=== PATIENT | male | born 1950 | race Caucasian/White ===

== ENCOUNTER 2016-07-03 16:58 | Emergency (ER) | payer OTHER ==
[~2016-07-03] VITALS: Ht 185.4 cm; Wt 78.6 kg
[~2016-07-03 16:58] MED LIST: ALPR0.5T8 PO; AMLO5TAB2 PO; APIX5TAB PO; ATOR80TA PO; GABA-502 PO; IBUP200C PO; INSLIS SUBQ; INSU100V7 SUBQ; ISOS60TA2 PO; LISI-571 PO; NITR0.4T6 SL; PARO20TA5 PO; RISP2TAB3 PO; RIVA3CAP5 PO; TOPI50TA88 PO; TRAZ-118 PO
[2016-07-03 16:59] VITALS: BP 113/74; PULSE 103; RESP 16; O2SAT 98
[2016-07-03] MEDS ORDERED: CLOP75TA3 PO (17:04)
--- NOTE | 2016-07-03 17:28 | ED.REPORT ---
HPI-Extremity Problem Lower Date of Service Jul 03, 2016 ED Provider: Nursing Notes Stated Complaint: BLOTS CLOTS, POSS STROKE Chief Complaint: Extremity Trauma Allergies: Coded Allergies: No Known Allergies (Verified , 07/03/16) Scheduled Amlodipine (Amlodipine) 5 Mg Tablet 5 MG PO DAILY Atorvastatin (Lipitor) 80 Mg Tablet 80 MG PO HS Clopidogrel Bisulfate (Plavix) 75 Mg Tablet 75 MG PO DAILY Gabapentin (Gabapentin) 300 Mg Capsule 300 MG PO BID Insulin Glargine (Lantus U100 Insulin Vial) 100 Unit/Ml Vial 20 UNIT SUBQ HS Insulin Human Lispro (HumaLOG U100 Insulin Vial) 100 Unit/Ml Unit UNITS SUBQ ACHS use per sliding scale Isosorbide MN ER (Isosorbide MN ER) 60 Mg Tab.er.24h 60 MG PO QAM Lisinopril (Lisinopril) 5 Mg Tablet 5 MG PO HS Paroxetine (Paroxetine) 20 Mg Tablet 20 MG PO DAILY Risperidone (Risperidone) 2 Mg Tablet 2 MG PO BID Rivastigmine (Rivastigmine) 3 Mg Capsule 3 MG PO BIDWM Trazodone (Trazodone) 100 Mg Tablet 200 MG PO HS Scheduled PRN Alprazolam (Alprazolam) 0.5 Mg Tablet 0.5 MG PO HS PRN PRN For Insomnia Ibuprofen (Ibuprofen) 200 Mg Capsule 800 MG PO TID PRN PRN For Pain Nitroglycerin SL (Nitroglycerin SL) 0.4 Mg Tab.subl 0.4 MG SL Q5MIN PRN PRN For Chest Pain General Time Seen by MD: 17:27 Past Medical History Past Medical History multiple CVAs, with recent right thalamic lacunar stroke extensive vascular disease pulmonary embolism 2x Hemorrhagic strokes while on asa and plavix Dementia Depression anxiety diabetes mellitus coronary artery disease with cardiac stenting 14x hypertension Reports: Transient ischemic attack Past Surgical History 14 cardiac stents (Last one 2013) CABG Smoking History Current Every Day Smoker Social History Alcohol Use: "Social" Drug Use: Denies drug use Other Social History: Good social support, , Local resident Ambulatory Status Independent Physical Exam Initial Vital Signs Vital Signs (First) Date Time Temp Pulse Resp B/P Pulse Ox O2 Delivery O2 Flow Rate FiO2 07/03/16 16:59 36.3 103 16 113/74 98 Room Air Interpretation & Diagnostics Lab Results Interpretation Test 07/03/16 17:35 Discharge & Departure Referrals: Melly Alvarez PA-C (PCP) Pancho Lacy MD Jul 03, 2016 17:28
--- NOTE | 2016-07-03 18:06 | ED.REPORT ---
HPI-Extremity Problem Upper Date of Service Jul 03, 2016 ED Provider: Stacy Loo MD A 66 year old male with a history of dementia, type II diabetes, CAD s/p multiple stents and bypass surgery, recent TIA, pulmonary embolism, hypertension , hyperlipidemia and known CVD with multiple previous CVA's presents to the ED complaining of left arm and left leg swelling that began 5 days ago. reports similar symptoms during his previous PE. Patient was recently seen in the ED on 04/02 for a TIA and was admitted on 03/31 for acute right thalamic lacunar infarct and CTA of the neck also revealed a PE. He was discharged on in good condition with instructions to take Eliquis and discontinue the Aspirin and Plavix. denies any new onset redness, fever, change in mental status, melena, hematochezia, abdominal pain or pain in his extremities. Nursing Notes Stated Complaint: BLOTS CLOTS, POSS STROKE Chief Complaint: Extremity Trauma Nursing Notes Reviewed: Yes Allergies: Coded Allergies: No Known Allergies (Verified , 07/03/16) Scheduled Amlodipine (Amlodipine) 5 Mg Tablet 5 MG PO DAILY Atorvastatin (Lipitor) 80 Mg Tablet 80 MG PO HS Clopidogrel Bisulfate (Plavix) 75 Mg Tablet 75 MG PO DAILY Gabapentin (Gabapentin) 300 Mg Capsule 300 MG PO BID Insulin Glargine (Lantus U100 Insulin Vial) 100 Unit/Ml Vial 20 UNIT SUBQ HS Insulin Human Lispro (HumaLOG U100 Insulin Vial) 100 Unit/Ml Unit UNITS SUBQ ACHS use per sliding scale Isosorbide MN ER (Isosorbide MN ER) 60 Mg Tab.er.24h 60 MG PO QAM Lisinopril (Lisinopril) 5 Mg Tablet 5 MG PO HS Paroxetine (Paroxetine) 20 Mg Tablet 20 MG PO DAILY Risperidone (Risperidone) 2 Mg Tablet 2 MG PO BID Rivastigmine (Rivastigmine) 3 Mg Capsule 3 MG PO BIDWM Trazodone (Trazodone) 100 Mg Tablet 200 MG PO HS Scheduled PRN Alprazolam (Alprazolam) 0.5 Mg Tablet 0.5 MG PO HS PRN PRN For Insomnia Ibuprofen (Ibuprofen) 200 Mg Capsule 800 MG PO TID PRN PRN For Pain Nitroglycerin SL (Nitroglycerin SL) 0.4 Mg Tab.subl 0.4 MG SL Q5MIN PRN PRN For Chest Pain General Time Seen by MD: 18:04 Chief Complaint Other (Left Leg Swelling ) Hx Obtained From: Patient, Spouse Arrived By: Walk-in Onset Occurred: 5 days ago Symptom Duration: Since onset Location: No: Arm left Associated with: Reports: Joint swelling, Swelling, Denies: Abdominal pain, Fever Pertinent Negative: Pt denies other symptoms Recent Healthcare: Recent doctor visit, Recent hospitalization Past Medical History Past Medical History TIA - 03/2016 multiple CVAs, with recent right thalamic lacunar stroke extensive vascular disease pulmonary embolism 2x Hemorrhagic strokes while on asa and plavix Dementia Depression anxiety diabetes mellitus coronary artery disease with cardiac stenting 14x hypertension Reports: Transient ischemic attack Past Surgical History 14 cardiac stents (Last one 2013) CABG Smoking History Current Every Day Smoker Social History Alcohol Use: "Social" Drug Use: Denies drug use Other Social History: Good social support, , Local resident Ambulatory Status Independent Review of Systems Constitutional: Denies: Chills, Fever Musculoskeletal: Reports: Extremity swelling (Left arm and left leg swelling ) , Denies: Extremity pain Neurologic: Denies: Change LOC Complete sys rev & neg: except as marked. Respiratory: Denies: Shortness of breath GI: Denies: Abdominal pain, Bloody/tarry stool, Hematochezia, Melena, Nausea, Vomiting Psychiatric: Denies: Change mental status Physical Exam Initial Vital Signs Vital Signs (First) Date Time Temp Pulse Resp B/P Pulse Ox O2 Delivery O2 Flow Rate FiO2 07/03/16 16:59 36.3 103 16 113/74 98 Room Air Initial VS: Reviewed Head / Eyes: Atraumatic, Normocephalic, PERRL Skin: Warm, Dry, No cyanosis Psychiatric: Mood/affect normal, Behavior normal, Normal thought content General/Constitutional: Awake, Alert Neck: Atraumatic, Supple Respiratory / Chest: Atraumatic, Breath sounds NL, Breath sounds = bilat Cardiovascular: Heart rate NL, Regular rhythm, Heart sounds NL Upper Ext Edema: Positive: Left 1+ (Left hand ) Lower Ext Edema: Positive: Left 1+ (Left ankle and left calf ) CARDIO: No edema proximally Upper Extremity / MS: Atraumatic, Neurologic intact Neurologic: CN II - XII intact Mental Status: Positive: Disoriented to time NERUO: Oriented to person and place Abdomen: Atraumatic, Soft, Non-tender, No distention Interpretation & Diagnostics US VEINOUS ARM DUPLEX UNILATERAL, LEFT Read by Radiologist IMPRESSION: No sonographic evidence for left upper extremity deep venous thrombosis Dictated by: Maik Tyson M.D. on 07/03/2016 at 20:17 Lab Results Interpretation Result Diagram: 07/03/16 1735 07/03/16 1735 Test 07/03/16 17:35 07/03/16 20:32 White Blood Count 9.8th/mm3 (3.8-10.1) Red Blood Count 4.32mil/mm3 (4.40-5.80) Hemoglobin 11.7g/dL (13.8-17.2) Hematocrit 34.7% (41.0-50.0) Mean Corpuscular Volume 80.3fL (81-100) Mean Corpuscular Hemoglobin 27.1pg (27.0-35.0) Mean Corpuscular Hemoglobin Concent 33.7% (32.0-37.0) Red Cell Distribution Width 13.8% (12.3-15.4) Platelet Count 192bil/L (150-400) Neutrophils (%) (Auto) 65.1% (40-74) Lymphocytes (%) (Auto) 24.3% (14-46) Monocytes (%) (Auto) 8.3% (4-12) Eosinophils (%) (Auto) 1.9% (0-5) Basophils (%) (Auto) 0.4% (0-3) Hold Purple Top Tube Received (Received) Prothrombin Time 10.7sec (8.1-12.5) Prothromb Time International Ratio 1.00ratio Activated Partial Thromboplast Time 26.1sec (22.8-33.0) Hold Blue Top Tube Received (Received) Sodium Level 139mEq/L (134-144) Potassium Level 4.0mEq/L (3.5-5.2) Chloride Level 102mEq/L (97-108) Carbon Dioxide Level 24mmol/L (18-29) Blood Urea Nitrogen 19mg/dL (8-27) Creatinine 0.84mg/dL (0.76-1.27) Estimat Glomerular Filtration Rate 98mL/min (>59) Glucose Level 131mg/dL (60-99) Calcium Level 8.9mg/dL (8.5-10.1) Total Bilirubin 0.3mg/dL (0.0-1.2) Aspartate Amino Transf (AST/SGOT) 11U/L (0-50) Alanine Aminotransferase (ALT/SGPT) 10U/L (0-44) Alkaline Phosphatase 83U/L (25-160) Pro-B-Type Natriuretic Peptide 1055pg/mL (0-210) Total Protein 6.1g/dL (6.4-8.4) Albumin 3.5g/dL (3.4-5.0) Hold [place] Top Tube Received (Received) Urine Color Yellow (YELLOW) Urine Appearance Clear (CLEAR,HAZY) Urine pH 6.5 (5.0-8.0) Urine Specific [place] 1.010 (1.003-1.035) Urine Protein Tracemg/dL (NEG,TRACE) Urine Glucose (UA) Negativemg/dL (NEGATIVE) Urine Ketones Negativemg/dL (NEGATIVE) Urine Occult Blood Negative (NEGATIVE) Urine Nitrite Negative (NEGATIVE) Urine Bilirubin Negative (NEGATIVE) Urine Urobilinogen Normalmg/dL (NORMAL) Urine Leukocyte Esterase Negative (NEGATIVE) Urine RBC 0-2/hpf (0-2) Urine WBC 0-5/hpf (0-5) Urine Epithelial Cells Occasional/hpf (NONE-MOD) Urine Crystals None seen (NONE SEEN) Urine Bacteria Few/hpf (NONE-FEW) Urine Hyaline Casts None/lpf (NONE) Urine Granular Casts None seen (NONE SEEN) Urine Waxy Casts None seen (NONE SEEN) Urine Red Blood Cell Casts None seen (NONE SEEN) Urine White Blood Cell Casts None seen (NONE SEEN) Urine Mucus Present (None Seen) Urine Trichomonas None seen (NONE SEEN) Urine Yeast None (NONE SEEN) Urinalysis Comment None Urine Culture Reflexed Not indicated US Soft Tissue/Musculoskeletal US VEINOUS LEG DUPLEX UNILATERAL, LEFT IMPRESSION: No sonographic evidence for left lower extremity acute deep venous thrombosis. Dictated by: Maik Tyson M.D. on 07/03/2016 at 20:20 Exam Performed by: Radiologist Ewa-Eval/Medical Decision Med Decision/Clinical Course 66-year-old male with past medical history of dementia, DVT, hypertension, high cholesterol who is recently stopped taking his Coumadin for medical reasons here with worsening leg swelling on the left along with arm swelling. Differential diagnosis includes but is not limited to DVT versus dependent edema versus new onset CHF versus fracture. Patient's exam is not consistent with fracture. Ultrasound shows no new DVT, and the DVT that he did have is now resolving. CBC shows baseline anemia. CMP is unremarkable. BNP is very mildly elevated, though at this time, I do not feel he has a CHF exacerbation. I have advised him and his to elevate his legs regularly and use compression stockings as needed. They will follow up this week with his primary care physician. There are aware and amenable to discharge and had been given very strict return precautions. Re-Evaluation/Progress : Time of Eval: 20:58 Patient Status: Condition improved Re-Evaluation/Progress Note: Patient is rechecked. He is informed of his lab results and US results. All of the patient's questions are adressed. He understands and agrees with the treatment plan to discharge. Counseled Regarding: Diagnosis, Lab results, Need for follow-up, When/why to return to ED Discharge & Departure Impression: Primary Impression: Lower extremity edema Laterality: left Qualified Code: R60.0 - Localized edema Disposition: Home Discharge Condition All VS Reviewed: Yes Condition: Stable Patient Instructions: Chronic Hypertension (ED), Leg Edema (ED) Additional Instructions: Thank you for trusting us with your care this evening. Your emergency department results including lab work, left arm US and left leg US are reassuring that there is no dangerous cause for your symptoms at this time and the cause of your symptoms was not identified. Your blood pressure in the emergency department tonight was high I recommend you schedule a follow-up appointment with your primary care physician in the next 1-2 days for a recheck. Please return to the emergency department for any new or worsening conditions including any increased swelling, numbness/tingling, fevers, or worsening chest pain. Referrals: Melly Alvarez PA-C (PCP) Scribe Attestation Portions of this note were transcribed by Sidra Victor. I, Dr. Loo personally performed the history, physical exam and medical decision-making; I reviewed and confirmed the accuracy of the information in the transcribed note. Signed by: Archana Antonio, 07/03/16 2130. copies to: Melly Alvarez PA-C, Rebecca A MD Jul 03, 2016 18:06 SIDRA VICTOR Jul 03, 2016 18:14
[2016-07-03 18:22] LABS: BASOPHILS % (AUTO) 0.4 % (0-3); EOSINOPHILS % (AUTO) 1.9 % (0-5); MONOCYTES % (AUTO) 8.3 % (4-12); Mean Corpuscular Hemoglobin 27.1 pg (27.0-35.0); Mean Corpuscular Volume 80.3 fL (81-100); NEUTROPHILS % (AUTO) 65.1 % (40-74); Platelet Count 192 bil/L (150-400)
--- NOTE | 2016-07-03 20:21 | DRSVH ---
PROCEDURE: US VENOUS ARM DUPLEX UNILATERAL, LEFT INDICATIONS: 66 year-old male with left hand swelling, and history of deep venous thrombosis. TECHNIQUE: Real-time imaging, as well as color and pulse Doppler interrogation, was performed of the left upper extremity deep veins from the inferior neck to the antecubital fossa. COMPARISON: None. FINDINGS: The internal jugular vein, visualized portions of the subclavian vein, axillary, and brach ial veins are free of intraluminal thrombus. Where physically possible, the veins are normally compr essible. Color and pulse Doppler demonstrate normal intraluminal flow, with expected phasicity and p ulsatility. Additional scanning of the basilic vein of the superficial system demonstrate normal com pressibility, without thrombus. The cephalic vein is surgically absent by history. IMPRESSION: No sonographic evidence for left upper extremity deep venous thrombosis. Dictated by: Maik Tyson M.D. on 07/03/2016 at 20:17 Approved by: Maik Tyson M.D. on 07/03/2016 at 20:20
--- NOTE | 2016-07-03 20:23 | DRSVH ---
PROCEDURE: US VEINOUS LEG DUPLEX UNILATERAL, LEFT INDICATIONS: 66 year-old male with left lower extremity swelling. TECHNIQUE: Real-time imaging, as well as color and pulse Doppler interrogation, were performed of the lower extr emity deep veins from the inguinal ligament to the popliteal fossa. COMPARISON: [facility], [place], US VENOUS LEG DPLX BILAT, 03/02/2016, 15:21. FINDINGS: The deep veins are normally compressible, and free of intraluminal thrombus. Color and pu lse Doppler demonstrate normal phasic intraluminal flow. There is normal augmentation response to di stal compression maneuver. IMPRESSION: No sonographic evidence for left lower extremity acute deep venous thrombosis. Dictated by: Maik Tyson M.D. on 07/03/2016 at 20:20 Approved by: Maik Tyson M.D. on 07/03/2016 at 20:22
[2016-07-03 20:29] VITALS: BP 131/68; PULSE 63; RESP 14; O2SAT 97
[2016-07-03 20:49] LABS: APPEARANCE,URINE CLEAR (CLEAR,HAZY); COLOR,URINE YELLOW (YELLOW); OCCULT BLOOD,URINE NEGATIVE (NEGATIVE); PH,URINE 6.5 (5.0-8.0); UROBILINOGEN,URINE NORMAL (NORMAL)
[2016-07-03 21:36] VITALS: BP 128/72; PULSE 56; RESP 16; O2SAT 97
== END 2016-07-03 21:36 | disposition home or self-care (01) ==
LOC: SED 16:58
DX: R60.0 Localized edema (principal); I10 Essential (primary) hypertension; E11.59 Type 2 diabetes mellitus with other circulatory complications; I25.10 Atherosclerotic heart disease of native coronary artery without angina pectoris; F03.90 Unspecified dementia, unspecified severity, without behavioral disturbance, psychotic disturbance, mood disturbance, and anxiety; E78.5 Hyperlipidemia, unspecified; Z86.73 Personal history of transient ischemic attack (TIA), and cerebral infarction without residual deficits; Z95.1 Presence of aortocoronary bypass graft; Z95.5 Presence of coronary angioplasty implant and graft; Z79.4 Long term (current) use of insulin; F17.200 Nicotine dependence, unspecified, uncomplicated

== ENCOUNTER 2016-09-29 12:40 | Observation (INO) | payer OTHER ==
[2016-09-29] VITALS (8 sets, daily range): BP systolic 123–168; BP diastolic 69–100; PULSE 55–75; RESP 18–20; O2SAT 97–98
[~2016-09-29] VITALS: Ht 188 cm; Wt 79.3 kg
[~2016-09-29 12:40] MED LIST changes: -APIX5TAB PO; +CLOP75TA3 PO; -TOPI50TA88 PO
--- NOTE | 2016-09-29 12:42 | ED.REPORT ---
HPI-General Illness Date of Service Sep 29, 2016 ED Provider: Dr. Ramos Pt id a 66 y/o male with a hx of vascular dementia, CAD (s/p multiple stents and previous bypass), type II DM, TIAs, HTN, PE ,hyperlipemia, and currently on Plavix, gabapentin, insulin and risperidone, trazodone and rivastigmine presents to ED complaining of weakness, worse on the right side, onset 2-3 days ago. As per the EMS, his has been noticing increased drooling over the past few days. She called the EMS today as the pt was unable to stand at all and she was concerned he may have had another stroke. The pt states his left sided facial droop is new and cannot say as a plan. He denies headache, fall, cough, chills and incontinence. The pt is unable to state when his current sx began. He is an extremely vague historian and midway through history taking he changes his story stating that he now has new onset weakness of his left side. Nursing Notes Stated Complaint: LETHARGIC Nursing Notes Reviewed: Yes Allergies: Coded Allergies: No Known Allergies (Verified , 07/03/16) Scheduled Amlodipine (Amlodipine) 5 Mg Tablet 5 MG PO HS Atorvastatin (Lipitor) 80 Mg Tablet 80 MG PO HS Carvedilol (Carvedilol) 12.5 Mg Tablet 12.5 MG PO BID Clopidogrel Bisulfate (Plavix) 75 Mg Tablet 75 MG PO HS Gabapentin (Gabapentin) 300 Mg Capsule 300 MG PO BID Insulin Glargine (Lantus U100 Insulin Vial) 100 Unit/Ml Vial 20 UNIT SUBQ HS Insulin Human Lispro (HumaLOG U100 Insulin Vial) 100 Unit/Ml Unit 2-10 UNITS SUBQ ACHS PER SLIDING SCALE FOR BG > 200 Isosorbide MN ER (Isosorbide MN ER) 60 Mg Tab.er.24h 60 MG PO HS Lisinopril (Lisinopril) 5 Mg Tablet 5 MG PO HS Paroxetine (Paroxetine) 40 Mg Tablet 40 MG PO HS Risperidone (Risperidone) 2 Mg Tablet 2 MG PO BID Rivastigmine (Rivastigmine) 3 Mg Capsule 3 MG PO BIDWM Trazodone (Trazodone) 100 Mg Tablet 200 MG PO HS Scheduled PRN Alprazolam (Alprazolam) 0.5 Mg Tablet 0.5 MG PO HS PRN PRN For Insomnia Hydrocodone-Acetaminophen 5-325 mg (Hydrocodone-Acetaminophen 5-325 mg) 1 Each Tablet 1 TABLET PO BID PRN PRN For Pain Ibuprofen (Ibuprofen) 200 Mg Capsule 200-400 MG PO TID PRN PRN For Pain Nitroglycerin SL (Nitroglycerin SL) 0.4 Mg Tab.subl 0.4 MG SL Q5MIN PRN PRN For Chest Pain General Time Seen by MD: 12:41 Chief Complaint Weakness Hx Obtained From: Patient, EMS Arrived By: Ambulance Sudden in Onset?: Yes Symptom Duration: Since onset Severity: Current: No pain currently Severity: Maximum: No pain Recent Healthcare: No recent doctor visit Similar Sx Previous: Yes Past Medical History Past Medical History TIA - 03/2016 multiple CVAs, with recent right thalamic lacunar stroke extensive vascular disease pulmonary embolism 2x Hemorrhagic strokes while on asa and plavix Dementia Depression anxiety diabetes mellitus coronary artery disease with cardiac stenting 14x hypertension Reports: Transient ischemic attack Past Surgical History 14 cardiac stents (Last one 2013) CABG Smoking History Current Every Day Smoker Social History Alcohol Use: "Social" Drug Use: Denies drug use Other Social History: Good social support, , Local resident Ambulatory Status Independent Review of Systems Reports: Drooling Reports: Difficulty standing Reports: slight left sided facial droop Full Review of Systems Constitutional: Denies: Chills Respiratory: Denies: Non-productive cough Male: Denies Incontinence Neurologic: Reports: Weakness (worse on the right), Denies: Lightheaded Complete sys rev & neg: except as marked. Physical Exam Vital Signs Vital Signs Date Time Temp Pulse Resp B/P Pulse Ox O2 Delivery O2 Flow Rate FiO2 09/29/16 15:09 75 20 136/71 98 Room Air 09/29/16 14:01 72 20 130/72 97 Room Air 09/29/16 13:24 67 20 132/77 98 Room Air 09/29/16 12:58 36.5 75 20 123/69 97 Room Air Initial VS: Reviewed Head / Eyes: Atraumatic, Normocephalic Neck: Supple, Non-tender, Full range of motion Extremities: Vascular intact, Neuro intact, No swelling, No tenderness Skin: Warm, Dry, No cyanosis Flat affect. Respiratory / Chest: Atraumatic, Breath sounds = bilat, No wheezing Coarse breath sounds throughout both lung harvey Cardiovascular: Heart rate NL, Regular rhythm, Heart sounds NL, No gallop, No murmurs, No rubs No calf swelling or tenderness. Abdomen: Atraumatic, Soft, Non-tender, No guarding, No rebound, BS normoactive , No distention Neurologic: CN II - XII intact Pronator drift and weakness of left arm but seems to be related to his old ischemic stroke. Diminished strength in left hand as compared to right hand. Good strength in lower extremities bilaterally. Very subtle possible droop over the left corner of his mouth. Has psychomotor retardation. Interpretation & Diagnostics Lab Results Interpretation Result Diagram: 09/29/16 1347 09/29/16 1347 Test 09/29/16 13:47 White Blood Count 9.1th/mm3 (3.8-10.1) Red Blood Count 4.92mil/mm3 (4.40-5.80) Hemoglobin 12.6g/dL (13.8-17.2) Hematocrit 38.5% (41.0-50.0) Mean Corpuscular Volume 78.3fL (81-100) Mean Corpuscular Hemoglobin 25.6pg (27.0-35.0) Mean Corpuscular Hemoglobin Concent 32.7% (32.0-37.0) Red Cell Distribution Width 16.0% (12.3-15.4) Platelet Count 207bil/L (150-400) Neutrophils (%) (Auto) 71.5% (40-74) Lymphocytes (%) (Auto) 19.3% (14-46) Monocytes (%) (Auto) 7.2% (4-12) Eosinophils (%) (Auto) 1.4% (0-5) Basophils (%) (Auto) 0.4% (0-3) Prothrombin Time 10.9sec (8.1-12.5) Prothromb Time International Ratio 1.02ratio Activated Partial Thromboplast Time 20.9sec (22.8-33.0) Sodium Level 143mEq/L (134-144) Potassium Level 4.1mEq/L (3.5-5.2) Chloride Level 107mEq/L (97-108) Carbon Dioxide Level 24mmol/L (18-29) Blood Urea Nitrogen 18mg/dL (8-27) Creatinine 0.80mg/dL (0.76-1.27) Estimat Glomerular Filtration Rate 103mL/min (>59) Glucose Level 148mg/dL (60-99) Calcium Level 9.2mg/dL (8.5-10.1) Total Bilirubin 0.4mg/dL (0.0-1.2) Aspartate Amino Transf (AST/SGOT) 15U/L (0-50) Alanine Aminotransferase (ALT/SGPT) 15U/L (0-44) Alkaline Phosphatase 101U/L (25-160) Troponin T < 0.010ug/L (0.0-0.011) Total Protein 6.2g/dL (6.4-8.4) Albumin 3.2g/dL (3.4-5.0) ECG Interpretation ECG Interpretation: Normal sinus rhythm. Rate of 61. Normal axis Normal intervals No acute ST segment changes No T wave changes No significant changes from the previous ECG on 04/02/16 Time: 13:23 Interpreted by: ED physician CT Head Interpretation IMPRESSION: No acute intracranial abnormality is seen. Small old lacune infarcts are present in the left centrum semiovale. Dictated by: Reji Butcher M.D. on 09/29/2016 at 13:42 Approved by: Reji Butcher M.D. on 09/29/2016 at 13:45 Study: Head CT no contrast Interpretation / Wet Read by: Interpret - Radiologist Re-Eval/Medical Decision Med Decision/Clinical Course Pt is a 66 y/o male with a hx of vascular dementia, CAD (s/p multiple stents and previous bypass), type II DM, TIAs, HTN, PE ,hyperlipemia, and currently on Plavix, gabapentin, insulin and risperidone, trazodone and rivastigmine presents to ED complaining of weakness, worse on the right side, onset 2-3 days ago. As per the EMS, his has been noticing increased drooling over the past few days. She called the EMS today as the pt was unable to stand at all and she was concerned he may have had another stroke. The pt states his left sided facial droop is new and cannot say as a plan. He denies headache, fall, cough, chills and incontinence. The pt is unable to state when his current sx began. She is an extremely vague historian and midway through history taking he changes his story stating that he now has new onset weakness of his left side. The emergency department the patient is afebrile with stable vital signs though has marketed psychomotor retardation and significant left sided weakness. Given the unclear time of onset vision is not a candidate for TPA. Reviewed pt's previous charts: Per most recent hospitalization from 03/01/2006 to 2005, the pt had right thalamic lacunar infarct. As per the physical exam at the time of discharge, he had residual left hand and left leg weakness. He was also noted to have significant psychomotor retardation during that hospitalization as well. Head CT obtained as below: IMPRESSION: No acute intracranial abnormality is seen. Small old lacune infarcts are present in the left centrum semiovale. Laboratory studies notable as below: CBC unremarkable CMP unremarkable Coag studies normal Troponin negative Urinalysis pending Patient is an extremely vague historian. His exam is notable for significant left-sided motor deficits however per chart review this is not new. Patient changes complaints multiple times initially stating that he had new onset right- sided weakness and later stating that his left-sided weakness was nail. Patient clearly has significant underlying cognitive impairment which makes it very difficult to ascertain what if anything is neurologically acute in this patient's presentation. Given these ambiguities I did not feel that administration of TPA was warranted. There is no evidence of an acute hemorrhagic process. No significant electrolyte abnormalities. At this time, I feel that the patient warrants admission to the hospital as he is unable to get out of bed and ambulate and I do not feel that he is safe for discharge home. It is furthermore unclear whether or not the patient may have experienced an acute ischemic stroke and therefore further workup is indicated. Patient was discussed with neurologist collection card clerk as well as hospitalist accepted for further management. He was transferred in stable condition. Urinalysis is pending at this time. Time of Eval: 15:24 Re-Evaluation/Progress Note: Spoke with the pt's . She states the left sided weakness has significantly worsened over the last 3 days. He has also been experiencing hematuria for the last two days. She states today his face is droopy and his speech is slurred. He was taken off Eliquis 3 months ago. Consultation #1: Referral / Consult Name: Kade Ching Consulted With: Hospitalist Call Returned at: 15:06 Coloring Checker: Will see patient, Agrees with eval, Agrees with plan, Accepts admit Consultation #2: Referral / Consult Name: Matt Ogden MD Consulted With: Neurology Call Returned at: 15:33 Coloring Checker: Will see patient, Agrees with eval, Agrees with plan Counseled Regarding: Diagnosis, Lab results, Need for admission Discharge & Departure Primary Impression: Altered mental status Altered mental status type: unspecified Qualified Code: R41.82 - Altered mental status, unspecified Additional Impressions: Weakness History of stroke History of coronary artery disease Platelet inhibition due to Plavix Disposition: ADMITTED TO HOSPITAL Discharge Condition All VS Reviewed: Yes Referrals: Angel Ramirez ND (PCP) Crit Care Except Billable Proc Time Spent: 30-74 minutes Services Performed: Patient management by me, Time spent at bedside, Reviewing test results, Reviewing imaging, Discussing patient care, Documentation in record, Time with fam/surrogate Scribe Attestation Portions of this note were transcribed by Mauyr Gonzalez. I, , personally performed the history, physical exam and medical decision-making;I reviewed and confirmed the accuracy of the information in the transcribed note. Signed by Archana Sosa. 09/29/16 15:33 copies to: Angel Ramirez ND, Beck O MD Sep 29, 2016 12:42 Maury Gonzalez Sep 29, 2016 12:53
[2016-09-29] MEDS ORDERED: Alum-Mag Hydrox-Simeth 30 mL Suspension PO PRN ×2 (13:25→17:30)
[2016-09-29] MEDS ORDERED: Ondansetron 2 mg/mL 2 mL Inj IVPUSH PRN ×2 (13:25→17:30)
--- NOTE | 2016-09-29 13:47 | DRSVH ---
PROCEDURE: CT BRAIN WITHOUT CONTRAST ([id number]) INDICATIONS: Stroke TECHNIQUE: Noncontrast 4.5 mm thick angled axial sections acquired from the foramen magnum to the vertex, with c oronal reformats. COMPARISON: [facility], CT, CT HEAD WO CONTRAST, 04/11/2016, 4:40 PM. FINDINGS: Image quality: Excellent. CSF spaces: Basal cisterns are patent. No extra-axial fluid collections. The ventricles are symmet sreedhar in size and shape. Brain: No intracranial bleeds or masses. There is cerebral volume loss for age, with resultant vent ricular and sulcal prominence. There are periventricular and deep white matter chronic small vessel ischemic changes. There is intracranial internal carotid artery atherosclerosis. Skull and face: Calvarium and visualized facial bones appear intact, without suspicious lesions. Sinuses: Visualized sinuses and mastoids are clear. IMPRESSION: No acute intracranial abnormality is seen. Small old lacune infarcts are present in the l eft centrum semiovale. Dictated by: Reji Butcher M.D. on 09/29/2016 at 13:42 Approved by: Reji Butcher M.D. on 09/29/2016 at 13:45
[2016-09-29] MEDS ORDERED: CARV12.52 PO (14:00)
[2016-09-29 14:06] LABS: BASOPHILS % (AUTO) 0.4 % (0-3); EOSINOPHILS % (AUTO) 1.4 % (0-5); MONOCYTES % (AUTO) 7.2 % (4-12); Mean Corpuscular Hemoglobin 25.6 pg (27.0-35.0); Mean Corpuscular Volume 78.3 fL (81-100); NEUTROPHILS % (AUTO) 71.5 % (40-74); Platelet Count 207 bil/L (150-400)
[2016-09-29] MEDS ORDERED: PARO40TA3 PO (14:12)
[2016-09-29] MEDS ORDERED: AMLO5TAB2 PO (14:12)
[2016-09-29] MEDS ORDERED: HYDR-4003 PO (14:13)
--- NOTE | 2016-09-29 14:18 | NUR ---
Evaluation completed. Please go to "Notes" then click on "Assessments and Notes" (bottom left corner of screen). Then select appropriate discipline tab on top of screen.
[2016-09-29 14:21] LABS: INR 1.02 ratio
[2016-09-29 14:42] LABS: TROPONIN T < 0.010 ug/L (0.0-0.011)
--- NOTE | 2016-09-29 16:35 | NUR ---
Admit Pt arrived on unit from ED. A&O X2: pt stated that he was in a hospital in [place] and that the current president was Messi Granda. at bedside to help answer questions. Pt has left side upper and lower weakness as well as left sided droopiness. Swallow eval done in ER by speech. Pupils equal and reactive. Pt has facial and scalp sores that are healing and blanchable redness on sacrum. Pt placed on falls precautions d/t hx of recent falls and per stroke protocol. Stroke information given to pt. Pt has no voided since this morning, clean urinal at bedside for UA. Continue to monitor
[2016-09-29] MEDS ORDERED: Labetalol 5 mg/mL 4 mL Inj IVPUSH PRN (17:30)
[2016-09-29] MEDS ORDERED: Polyethylene Glycol (PEG) 17 Gm Powder PO PRN (17:30)
[2016-09-29] MEDS ORDERED: ALPRAZolam 0.5 mg Tablet PO PRN (17:50)
[2016-09-29] MEDS ORDERED: HYDROcodone-APAP 5-325 mg Tablet PO PRN (17:55)
--- NOTE | 2016-09-29 18:02 | PCM.HPMED ---
Subjective Date of Service Sep 29, 2016 Primary Provider: Admitting Physician: Kade Ching Primary Care Physician: Angel Ramirez ND Attending Physician: Kade Ching Chief Complaint: slurred speech, left sided weakness History of Present Illness: 66 year-old right-handed male with past medical history notable for diabetes mellitus, coronary artery disease with multiple stents and bypass surgery, in addition to known vascular disease previous history of multiple CVAs and TIAs mostly resulting in left-sided weakness presents today with complaint of new onset of slurred speech and acute on chronic left sided weakness. Patient's provides most of the history and notes that for the past few days patient seems to be slowly deteriorating by becoming slower in his movement and appearing weaker than usual. Today patient seemed to be leaning more to his left side and his was having a hard time helping him standup which he was able to do so up until today. Patient's also reports that patient has been having urinary hesitancy and retention for the past several days and has noted couple of episodes of hematuria as well. He has also been having non-productive cough for the past week or so. Patient apparently had an episode of fever one week ago but has remained afebrile and without chills. Of note, patient was diagnosed with PE in February 2016 and was treated with Eliquis which was stopped about a month ago, according to patient's , and patient was restarted back on Plavix alone. Patient's also reports that patient has lost about 50 lbs over the past 1.5 years due to decreased appetite and PO intake. He has intermitent diarrhea without any noted melena or hematochezia. Review of Systems: Constitutional: Negative, except as otherwise mentioned in the history above. Ophthalmologic: Negative, except as otherwise mentioned in the history above. Cardiovascular: Negative, except as otherwise mentioned in the history above. Respiratory: Negative, except as otherwise mentioned in the history above. Gastrointestinal: Negative, except as otherwise mentioned in the history above. Genitourinary: Negative, except as otherwise mentioned in the history above. Musculoskeletal: Negative, except as otherwise mentioned in the history above. Neurological: Negative, except as otherwise mentioned in the history above. Psychiatric: Negative, except as otherwise mentioned in the history above. Hematologic/Lymphatic: Negative, except as otherwise mentioned in the history above. Allergic/Immunologic: Negative, except as otherwise mentioned in the history above. Allergies Coded Allergies: No Known Allergies (Verified , 07/03/16) Home Medications Atorvastatin (Lipitor) 80 Mg Tablet 80 MG PO HS Clopidogrel (Clopidogrel) 75 Mg Tablet 75 MG PO DAILY Gabapentin (Gabapentin) 300 Mg Capsule 300 MG PO BID Insulin Glargine (Lantus U100 Insulin Vial) 100 Unit/Ml Vial 20 UNIT SUBQ HS Insulin Human Lispro (HumaLOG U100 Insulin Vial) 100 Unit/Ml Unit UNITS SUBQ ACHS use per sliding scale Isosorbide MN ER (Isosorbide MN ER) 60 Mg Tab.er.24h 60 MG PO QAM Lisinopril (Lisinopril) 5 Mg Tablet 5 MG PO HS Lovastatin (Lovastatin) 40 Mg Tablet 40 MG PO HS Paroxetine (Paroxetine) 20 Mg Tablet 20 MG PO DAILY Risperidone (Risperidone) 2 Mg Tablet 2 MG PO BID Rivastigmine (Rivastigmine) 3 Mg Capsule 3 MG PO BIDWM Topiramate (Topiramate) 50 Mg Tablet 50 MG PO BID Trazodone (Trazodone) 100 Mg Tablet 100 MG PO BID Scheduled PRN Nitroglycerin SL (Nitroglycerin SL) 0.4 Mg Tab.subl 0.4 MG SL Q5MIN PRN PRN For Chest Pain Exam Vital Signs & I/O Vital Sign- Last 8 Hours Date Time Temp Pulse Resp B/P Pulse Ox O2 Delivery O2 Flow Rate FiO2 09/29/16 17:41 36.6 55 18 149/80 98 Room Air 09/29/16 15:45 36.5 57 20 159/80 97 Room Air 09/29/16 15:09 75 20 136/71 98 Room Air 09/29/16 14:01 72 20 130/72 97 Room Air 09/29/16 13:24 67 20 132/77 98 Room Air 09/29/16 12:58 36.5 75 20 123/69 97 Room Air Lab & Micro Results Laboratory Tests Test 09/29/16 13:47 White Blood Count 9.1th/mm3 (3.8-10.1) Red Blood Count 4.92mil/mm3 (4.40-5.80) Hemoglobin 12.6g/dL (13.8-17.2) Hematocrit 38.5% (41.0-50.0) Mean Corpuscular Volume 78.3fL (81-100) Mean Corpuscular Hemoglobin 25.6pg (27.0-35.0) Mean Corpuscular Hemoglobin Concent 32.7% (32.0-37.0) Red Cell Distribution Width 16.0% (12.3-15.4) Platelet Count 207bil/L (150-400) Neutrophils (%) (Auto) 71.5% (40-74) Lymphocytes (%) (Auto) 19.3% (14-46) Monocytes (%) (Auto) 7.2% (4-12) Eosinophils (%) (Auto) 1.4% (0-5) Basophils (%) (Auto) 0.4% (0-3) Prothrombin Time 10.9sec (8.1-12.5) Prothromb Time International Ratio 1.02ratio Activated Partial Thromboplast Time 20.9sec (22.8-33.0) Sodium Level 143mEq/L (134-144) Potassium Level 4.1mEq/L (3.5-5.2) Chloride Level 107mEq/L (97-108) Carbon Dioxide Level 24mmol/L (18-29) Blood Urea Nitrogen 18mg/dL (8-27) Creatinine 0.80mg/dL (0.76-1.27) Estimat Glomerular Filtration Rate 103mL/min (>59) Glucose Level 148mg/dL (60-99) Calcium Level 9.2mg/dL (8.5-10.1) Total Bilirubin 0.4mg/dL (0.0-1.2) Aspartate Amino Transf (AST/SGOT) 15U/L (0-50) Alanine Aminotransferase (ALT/SGPT) 15U/L (0-44) Alkaline Phosphatase 101U/L (25-160) Troponin T < 0.010ug/L (0.0-0.011) Total Protein 6.2g/dL (6.4-8.4) Albumin 3.2g/dL (3.4-5.0) Hold [place] Top Tube Received (Received) Result Diagram: 09/29/16 1347 09/29/16 1347 PMH Anxiety DM HTN TIA Dementia early, angry in history Depression CVA x 2 ischemia CAD PE diagnosed in Feb 2016 with about 6 months treatment with Eliquis Surgical History 14 cardiac stents (Last one 2013) CABG Family History reports his parents both have history significant for vascular disease/ heart conditions. Social History Hx Alcohol Use: No Hx Substance Use: No Hx Tobacco Use: Yes (Quit 2009) Smoking Status: Current Every Day Smoker (1 ppd) Exam Vital Signs Vital Sign - Last Date Time Temp Pulse Resp B/P Pulse Ox O2 Delivery O2 Flow Rate FiO2 09/29/16 17:41 36.6 55 18 149/80 98 Room Air General: Alert, Oriented X3, Cooperative, No Acute Distress Head: Normal Eyes: PERRLA, EOMI, Scleral Anicteric Nose: Mucous Membr Moist/[place] Mouth: Mucous Membr Moist/[place] Neck: Supple Chest & Lungs: Chest Wall Normal, Clear to auscultation & percussion Cardiovascular: Regular Rate/Rhythm Pulses: NL carotid, radial, femoral, DP, PT Abdomen: Non-tender, Non-distended, Normoactive bowel tones, Soft Extremities: No cyanosis/clubbing/edma bilat Skin: Other (no signfiicant ulcer/rash) Neurological: Cranial Nerves 2-12 Intact (except very mild possible left facial droop), Normal Speech (although patient's feels patient with mild slurring), Sensation Intact (grossly intact to soft touch), Other (strength about 3/4 in upper extremity and LE bilaterally) Lymphatic: Other Lymph Nodes (no significant lymphadenopathy) Additional Information: Affect: calm and appropriate Lab and Diagnostics Result Diagram: 09/29/16 1347 09/29/16 1347 X-Rays, CTs and MRIs Date of Service: 09/29/16 1317 PROCEDURE: CT BRAIN WITHOUT CONTRAST ([id number]) IMPRESSION: No acute intracranial abnormality is seen. Small old lacune infarcts are present in the left centrum semiovale. Dictated by: Reji Butcher M.D. on 09/29/2016 at 13:42 Approved by: Reji Butcher M.D. 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 Patient's provides most of the history and notes that for the past few days patient seems to be slowly deteriorating by becoming slower in his movement and appearing weaker than usual. Today patient seemed to be leaning more to his left side and his was having a hard time helping him standup which he was able to do so up until today. # Acute slurring of speech as well as acute on chronic left sided weakness, present on admission. - Unclear if acute TIA/CVA vs possible exacerbation of prior CVA - CT brain negative - Tele - Continue with home dose Plavix - Will Add ASA 81 mg daily for now - MRI brain - Limited Echo - Continue with Statin - Permissive hypertension until acute CVA ruled out - Smoking cessation cannot be under stated - rule out possible underlying developing infection as cause of symptoms (as detailed below) - Per ED neurology consulted and will followup with further recs # Acute hematuria, present prior to admission per patient's report. - Check UA and rule out underlying UTI # Acute on chronic cough, present on admission - Check CXR - Currently appears stable # History of cardiovascular disease/hypertension. stable - We will hold antihypertensive medications and allow for permissive hypertension until acute CVA ruled out - IV Labetalol prn # Diabetes mellitus type II: - Continue with home dose Lantus - ISS while inpatient # Tobacco dependence - Cessation was counseled therapeutic options are reviewed. - We will provide nicotine patch # Dementia, stable - Likely vascular recurrent CVAs - Neurology consult as noted above # Recent history of PE - Apparently finished 6 month treatment with Eliquis - SC heparin for DVT prophylaxis for now Expected length of hospital stay at this time is less than 2 midnights and likely 1-2 days GI Prophylaxis: Not indicated VTE Prophylaxis: Sub-Q Heparin (Unfractionated) Resuscitation Status: CPR: Attempt Resuscitation (discussed and verified with patient) Kade Ching Sep 29, 2016 18:02
--- NOTE | 2016-09-29 18:25 | DRSVH ---
PROCEDURE: X-RAY CHEST ONE VIEW, PORTABLE ([id number]) INDICATIONS: cough TECHNIQUE: One view of the chest was acquired. COMPARISON: [facility], CR, XR CHEST 2VW, 04/02/2016, 21:27. FINDINGS: Surgical changes and devices: Previous sternotomy for CABG procedure. color television console monitor leads are seen over the chest as well. Lungs and pleura: No pleural effusions or pneumothorax. Lungs are clear. Mediastinum: Mediastinal contours appear normal. Heart size is normal. Bones and chest wall: No suspicious bony lesions. Overlying soft tissues appear unremarkable. IMPRESSION: Acute disease is seen in the upright portable chest. Dictated by: Reji Butcher M.D. on 09/29/2016 at 18:22 Approved by: Reji Butcher M.D. on 09/29/2016 at 18:23
[2016-09-29] MEDS: PARoxetine 20 mg Tablet PO SCH (21:09)
[2016-09-29] MEDS: risperiDONE 2 mg Tablet PO SCH (21:09)
[2016-09-29] MEDS: Insulin GLARgine 100 Unit/mL Syringe SUBQ SCH (21:10)
[2016-09-29] MEDS: Insulin Human REGular 300 Unit/3 mL Inj SUBQ SCH (21:10)
[2016-09-30] VITALS (9 sets, daily range): BP systolic 104–162; BP diastolic 65–98; PULSE 49–82; RESP 18–20; O2SAT 95–98
[2016-09-30] MEDS: Heparin 5,000 Unit/mL Inj SUBQ SCH ×3 (00:32→16:58)
--- NOTE | 2016-09-30 06:32 | NUR ---
Noc activity pt is alert and oriented to self. very forgetful but could be re-oriented. Denies chest pain, sob, n/v or abd discomfort. Pt is incontinent of urine, unable to obtain a sample due to pt forgot to use urinal despite re-orientation. Noted left sided deficit, mild slurring of speech and a little slow in response. PERRLA, mild left sided facial deviation. Left sided deficit on upper extremities strength. A little wobbly but is able to ambulate to the br with the help of this RN. Intentional hourly rounding done and pt has slept most of the night.
[2016-09-30] MEDS: Insulin Human REGular 300 Unit/3 mL Inj SUBQ SCH ×4 (07:30→21:25)
[2016-09-30 08:08] LABS: APPEARANCE,URINE CLEAR (CLEAR,HAZY); COLOR,URINE STRAW (YELLOW); OCCULT BLOOD,URINE TRACE (NEGATIVE); UROBILINOGEN,URINE NORMAL (NORMAL)
[2016-09-30] MEDS: risperiDONE 2 mg Tablet PO SCH ×2 (08:13→21:24)
--- NOTE | 2016-09-30 10:53 | DRSVH ---
PROCEDURE: MRI STROKE PROTOCOL ([id number]) Pre- and post-contrast brain MRI, non-contrast brain MR angiogram, pre- and postcontrast neck MR tammy ogram INDICATIONS: slurred speech TECHNIQUE: Brain: Noncontrast axial T1 spin echo, axial T2 fast spin echo, sagittal and axial FLAIR, coronal T2 fast spin echo, axial gradient echo, axial diffusion and ADC through the brain. After the administr ation of contrast, axial 3D VIBE of the cranial vasculature and brain. Brain MRA: Non-contrast 3-D time of flight MR angiogram, with multiple chlxxtp-gjfdxqrid-nlofgdmprf (MIP) reformats performed. Neck MRA: Axial and sagittal TruFISP through the neck. Coronal dynamic MR angiogram during administ ration of contrast in the arterial and venous phases, with 3-dimenstional kppqulv-dwosdwfdq-zzjqkdoxk n (MIP) reformats constructed from subtraction images. COMPARISON: [facility], MR, MR STROKE PROTOCOL, 02[facility]17/2016[facility] 17[facility] 13:28. [facility], CT, CT BRAIN WO CON, 04/02/2016, 21:22. [facility], MR, MR BRAIN WO CON, 03/02/2016, 9:07. FINDINGS: Image quality: Excellent. BRAIN: CSF spaces: Ventricles are normal in size and shape. Basal cisterns are patent. No extra-axial flu id collections. Brain: No intracranial bleeds or mass effects. Harris-white matter interface is normal. Diffusion we ighted images show no acute ischemic insults but there is stable appearing mild to moderate microvasc ular atherosclerotic change in the deep white matter of each hemisphere. Brainstem appears normal. Normal intravascular flow voids are present. No abnormal intracranial enhancement. Skull and face: Calvarial marrow signal is normal. Orbits appear normal. Sinuses: Sinuses and mastoids are clear. BRAIN MR ANGIOGRAM: Anterior circulation: Intracranial internal carotid arteries are normal in size and enhancement. Th e flow within the paired anterior cerebral arteries is normal and symmetric. The flow within the mid dle cerebral arteries is normal and symmetric. The anterior communicating artery is seen. No stenos es, occlusions, or aneurysms. Posterior circulation: The visualized portions of the vertebral arteries demonstrate normal caliber, and join to form a normal appearing basilar artery. The flow within the posterior cerebral arteries is normal and symmetric. No stenoses, occlusions, or aneurysms. NECK MR ANGIOGRAM: Carotids: Great vessels demonstrate a conventional anatomy as they arise from the aortic arch. The origins of the common carotid arteries appear patent. The calibers and courses of both common caroti d arteries are normal. The bifurcation regions appear normal bilaterally. The internal carotid [facility] demonstrate normal course and caliber. Posterior circulation: The origins of the vertebral arteries appear patent. More superior portions of both vertebral arteries demonstrate normal course and caliber, and join to form a normal appearing basilar artery. Miscellaneous: Subclavian arteries appear patent. Pre-contrast images through the neck show no soft tissue abnormalities. IMPRESSION: BRAIN MRI: Mild to moderate microvascular atherosclerotic change in the deep white matter of each he misphere but there is no sign of acute or subacute ischemic injury. BRAIN MR ANGIOGRAM: Normal intracranial MR angiogram. NECK MR ANGIOGRAM: Minimal atherosclerotic irregularity at the origin of each proximal internal santoro tid artery, stable over time. The estimate of stenosis included in the report of the imaging study was calculated using the NASCET method Dictated by: Michoacano Rubin M.D. on 09/30/2016 at 10:23 Approved by: Michoacano Rubin M.D. on 09/30/2016 at 10:51
--- NOTE | 2016-09-30 10:54 | NUR ---
Evaluation completed. Please go to "Notes" then click on "Assessments and Notes" (bottom left corner of screen). Then select appropriate discipline tab on top of screen.
--- NOTE | 2016-09-30 13:54 | PCM.PNMED ---
Subjective Date of Service Sep 30, 2016 Subjective Feels still having some slurred speech but reports resolution of left sided weakness. Denies any other new issues/complaints Exam Vital Signs Vital Sign - Last Date Time Temp Pulse Resp B/P Pulse Ox O2 Delivery O2 Flow Rate FiO2 09/30/16 12:47 36.6 58 18 135/75 95 Room Air Intake and Output 09/29/16 09/29/16 09/30/16 Cumulative From/Thru 15:00 23:00 07:00 09/29/16 12:58 - 09/30/16 06:11 Intake Total 200 ml 190 ml 390 ml Balance 200 ml 190 ml 390 ml Intake Oral 200 ml 180 ml 380 ml IV Total 10 ml 10 ml # Voids 2 2 4 # Bowel Movements 0 0 Exam General: Alert, Oriented X3, Cooperative, No Acute Distress Head: Normal Eyes: PERRLA, EOMI, Scleral Anicteric Nose: Mucous Membr Moist/[place] Mouth: Mucous Membr Moist/[place] Neck: Supple Chest & Lungs: Chest Wall Normal, Clear to auscultation bilat Cardiovascular: Regular Rate/Rhythm Pulses: NL carotid, radial, femoral, DP, PT Abdomen: Non-tender, Non-distended, Normoactive bowel tones, Soft Extremities: No cyanosis/clubbing/edema bilat Neurological: Cranial Nerves 2-12 Intact, Normal Speech (although patient feels he still has mild slurring), Sensation Intact (grossly intact to soft touch), Other (strength about 3/4 in upper extremity and LE bilaterally) Affect: calm and appropriate IVs and Medications Medications Reviewed: Medications were reviewed in detail Lab and Diagnostics Result Diagram: 09/29/16 1347 09/29/16 1347 X-Rays, CTs and MRIs Date of Service: 09/29/16 1317 PROCEDURE: CT BRAIN WITHOUT CONTRAST ([id number]) IMPRESSION: No acute intracranial abnormality is seen. Small old lacune infarcts are present in the left centrum semiovale. Dictated by: Reji Butcher M.D. on 09/29/2016 at 13:42 Approved by: Reji Butcher M.D. 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 Patient's provides most of the history and notes that for the past few days patient seems to be slowly deteriorating by becoming slower in his movement and appearing weaker than usual. Today patient seemed to be leaning more to his left side and his was having a hard time helping him standup which he was able to do so up until today. # Acute slurring of speech as well as acute on chronic left sided weakness, present on admission. - Unclear if acute TIA vs possible exacerbation of prior CVA - CT brain negative - Tele - Continue with home dose Plavix - Continue Added ASA 81 mg daily - MRI brain without any acute findings - Followup pending limited Echo - Continue with Statin - Smoking cessation cannot be under stated - ruled out underlying developing infection - Per ED neurology consulted and will followup with further recs # Acute hematuria, present prior to admission per patient's report. Appear resolved at this time - UA notable only for trace occult blood - Will need further followup with urology as outpatient # Acute on chronic cough, present on admission. Stable - CXR without acute finding # History of cardiovascular disease/hypertension. stable - Resume home dose antihypertensive medications - IV Labetalol prn # Diabetes mellitus type II: - Continue with home dose Lantus - ISS while inpatient # Tobacco dependence - Cessation was counseled therapeutic options are reviewed. - We will provide nicotine patch # Dementia, stable - Likely vascular recurrent CVAs - Neurology consult as noted above # Recent history of PE - Apparently finished 6 month treatment with Eliquis - SC heparin for DVT prophylaxis for now Dispo: home vs SNF pending completion of above workup and PT recommendations GI Prophylaxis: Not indicated VTE Prophylaxis: Sub-Q Heparin (Unfractionated) Resuscitation Status: CPR: Attempt Resuscitation (discussed and verified with patient) Kade Ching Sep 30, 2016 13:54
--- NOTE | 2016-09-30 17:47 | NUR ---
shift note Pt is alert and oriented to self and very forgetful. Pt used urinal this morning but was incontinent for rest of shift. Uses call light appropriately. Pt continues to have left upper and lower extremity deficits and mild facial droop. Pt is unsteady of feet and drifts to right. Pt slept most of shift.
--- NOTE | 2016-09-30 18:26 | NUR ---
Social Work: Screening D: EMR reviewed. Pt is a 66 y/o male Julita for altered mental status, weakness per H&P. SW met with pt and at bedside to conduct initial screening. SW explained role and wrote phone number on white board in pt's room. SW attemped to discuss PT recommendation for SNF. Pt replied "I am not doing that." Pt was alert and responsive but asked to SW to contact his spouse, Almaz, to discuss discharge planning. SW attempted to call pt's spouse but phone number was incorrect. SW asked pt if he was able to recall his spouses phone number and pt provided accurate phone number. SW placed T/C to pt's spouse Almaz Alvarez ([phone]) to discuss PT recommendations for SNF or home if 24/7 care was available. SW explained that pt was able to recall spouses phone number and pt stated he did not want to go to SNF. Almaz agreed that if pt was not willing to go, she could provide 24/7 care between her and her children. SW discussed HH as another option and confirmed pt would be homebound. Almaz was agreeable to HH. Almaz stated that pt has had positive hx with [facility] in the past. SW placed choice list in pt's room so Almaz could review HH agencies and choose after she arrives to hospital tomorrow at 1000. CLOTILDE confirmed plan with Almaz and pt and all were agreeable to plan. Almaz also confirmed that pt lives in [place] with Almaz and their family. Almaz confirmed that pt has completed DPOA/advanced directive ppw and that Almaz is pt's DPOA. SW encouraged Almaz to provide a copy of ppw to the hospital. lAmaz stated she would bring a copy to the hospital when she arrives tomorrow. Almaz will provide pt transport home via POV when medically stable. CLOTILDE will continue to work with pt and Almaz and follow for HH choice. A: Pt for whom a SNF or 24/7 care have been deemed medically necessary. Pt and spouse decline SNF but are able to provide 24/7 care and agreeable to HH. P: Almaz will provide pt transport home via POV when medically stable. CLOTILDE will continue to work with pt and Almaz and follow for HH choice. Almaz will be at the hospital with pt at 1000 tomorrow. CHIQUIS Alex
[2016-09-30] MEDS ORDERED: Isosorbide Mononitrate 60 mg ER24 Tablet PO SCH (21:00)
[2016-09-30] MEDS: PARoxetine 20 mg Tablet PO SCH (21:22)
[2016-09-30] MEDS: Insulin GLARgine 100 Unit/mL Syringe SUBQ SCH (21:25)
[2016-10-01] MEDS: Heparin 5,000 Unit/mL Inj SUBQ SCH ×2 (00:24→08:40)
[2016-10-01 00:30] VITALS: BP 122/58; PULSE 72; RESP 18; O2SAT 94
[2016-10-01 04:30] VITALS: BP 120/68; PULSE 60; RESP 18; O2SAT 95
[2016-10-01 05:51] LABS: Mean Corpuscular Hemoglobin 25.3 pg (27.0-35.0); Mean Corpuscular Volume 77.9 fL (81-100)
--- NOTE | 2016-10-01 06:06 | NUR ---
NOC Activity Pt is alert and oriented but has been forgetful. Denies chest pain, sob, n/v or abd discomfort. Ambulate around hallway 1x with gaitbelt and FWW. Pt is a little unsteady and wobbly on feet. VSS and has been afebrile. HS meds administered as scheduled and insulin per sliding scale. Intentional hourly rounding done and pt has slept most of the night.
[2016-10-01 06:45] LABS: Magnesium 1.6 mg/dL (1.6-2.6)
[2016-10-01] MEDS: Insulin Human REGular 300 Unit/3 mL Inj SUBQ SCH ×2 (07:30→12:12)
[2016-10-01] MEDS: risperiDONE 2 mg Tablet PO SCH (08:38)
--- NOTE | 2016-10-01 10:22 | NUR ---
choice list provided. CHIQUIS Cabral
--- NOTE | 2016-10-01 10:22 | NUR ---
Social Work-readiness for discharge: Data:EMR Reviewed. Pt is on day 2 of hospitalization for alerted mental status per H&P. Pt is likely medically stable later today or tomorrow. PT continues to recommend SNF, but pt's is able to provide 24/7 care. SW followed up re . order received for RN,PT, and OT. HH choice list provided. SW met with pt and at [facility], SW role explained. states they have a history of [facility] and would like a referral to [facility]. SW placed a call to [facility] and provided them with referral for RN,OT, and PT, access given. F2F to be completed by . to provide transport home. SW will continue to follow. Assessment:Pt who would benefit from . Plan:Pt to discharge home when medically stable via POV. Referral made to [facility] for RN,PT, and OT, access given. F2F to be completed by . to provide transport home. SW will continue to follow. CHIQUIS Cabral
[2016-10-01 10:33] VITALS: BP 109/70; PULSE 60; RESP 18; O2SAT 98
[2016-10-01 13:09] VITALS: PULSE 68
[2016-10-01 13:42] VITALS: BP 130/76; PULSE 56; O2SAT 95
--- NOTE | 2016-10-01 14:18 | PCM.CHPMED ---
Subjective Date of Service: Oct 01, 2016 Provider requesting consult: Kade Ching Primary Physician: Admitting Physician: Kade Ching Primary Care Physician: Angel Ramirez ND Attending Physician: Kade Ching Chief Complaint: Chief Complaint: Left sided weakness and slurred speech History of Present Illness: Neurology Consult Note Patient is a 66 year old male with a history of diabetes mellitus, coronary artery disease with multiple stents and bypass surgery, pulmonary embolism, and history of multiple CVAs and TIAs with residual left-sided weakness who presented with new slurred speech and acute on chronic left sided weakness. He had been walking slower and feeling weaker for several days before being brought to the hospital. MRI angio head/neck showed mild-moderate moderate microvascular atherosclerotic change in the deep white matter of each hemisphere but no sign of acute or subacute ischemic injury, with minimal atherosclerotic irregularity at the origin of each proximal internal carotid artery, stable over time. CT head without contrast showed no acute intracranial abnormality, with small old lacunar infarcts in the left centrum semiovale. Today, he reports his increased left sided weakness is back to baseline, but his slurred speech is still present. He denies numbness and tingling, vision changes, dizziness, fainting, chest pain, shortness of breath, N/V/D, fevers, or chills. Review of Systems: Comprehensive review of systems conducted and was negative except for the pertinent positives listed above. PMH Past Medical History CVA x 2 ischemic TIA Coronary artery disease s/p multiple stents and CABG PE diagnosed in Feb 2016 with about 6 months treatment with Eliquis Type 2 diabetes mellitus Hypertension Dementia Depression and anxiety Bedside Blood Glucose: 165 Surgical History Multiple cardiac stents (Last one in 2013) CABG Allergies: Coded Allergies: No Known Allergies (Verified , 07/03/16) Family History Family History Both parents with history significant for vascular disease/heart conditions. Social History Hx Alcohol Use: NoHx Substance Use: NoHx Tobacco Use: Yes (Quit 2009) Smoking Status: Current Every Day Smoker (1 ppd) Exam Vital Signs Vital Sign - Last Date Time Temp Pulse Resp B/P Pulse Ox O2 Delivery O2 Flow Rate FiO2 10/01/16 13:42 36.8 56 130/76 95 Room Air 10/01/16 10:33 18 Intake and Output 09/30/16 09/30/1617 Cumulative From/Thru 15:00 23:00 07:00 09/29/16 12:58 - 10/01/16 06:33 Intake Total 600 ml 10 ml 1000 ml Output Total 375 ml 375 ml Balance 225 ml 10 ml 625 ml Intake Oral 600 ml 980 ml IV Total 10 ml 20 ml Output Urine Total 375 ml 375 ml # Voids 1 5 # Bowel Movements 0 0 Additional Information: General: Alert, Oriented X3, Cooperative, No acute distress Head: Normocephalic, atraumatic. External ears normal. Eyes: PERRLA, EOMI. Anicteric sclerae. Mouth: Mouth normal, Mucous membranes moist/pink Neck: Neck supple with full range of motion. Chest& Lungs: Clear to auscultation bilaterally with no crackles, wheezes, or rhonchi. Cardiovascular: Regular rate/rhythm, Normal S1, Normal S2, No murmurs/rubs/ gallops Abdomen: Non-tender, Non-distended, No masses, Normoactive bowel tones, Soft Musculoskeletal: Normal range of motion Extremities: No cyanosis/clubbing/edema bilaterally Neuro: Slightly slurred speech. Strength 4/4 right upper and lower extremities. Strength 3/4 left lower extremity, 2/4 in left upper extremity. Some subtle left facial droop. Sensation Intact, Finger-Nose and Heel-Mccoy normal, but slower on the left. Vision intact with no deficits. Lab and Diagnostics Result Diagram: 10/01/1610 10/01/16 0510 Assessment & Plan Assessment Patient is a 66 year old male with a history of diabetes mellitus, coronary artery disease with multiple stents and bypass surgery, pulmonary embolism, and history of multiple CVAs and TIAs with residual left-sided weakness who presented with new slurred speech and acute on chronic left sided weakness. Acute Stroke Pt presents with acute on chronic left sided weakness and new slurred speech in the context of prior history of multiple CVAs and TIAs. His weakness has returned to baseline but it appears his speech remains dysarthric 2 days after initial presentation. At this point, his symptoms should be treated as an acute stroke despite lack of radiographic findings. He was on Plavix at the time of the event, and should be started on aspirin 81 mg daily. He should be placed on dual antiplatelet therapy for now, with follow up with neurology outpatient. He may require indefinite treatment with dual antiplatelet therapy given his failure on Plavix. Recommend optimization of control of the patients stroke risk factors including his hypertension, hyperlipidemia, and diabetes. Given his history of PE and recurrent stroke, we recommend hypercoagulable workup. - Aspirin and Plavix - continue for at least 3 months - Continue atorvastatin 80 mg daily - Optimize control of patients stroke risk factors including hypertension, hyperlipidemia, and diabetes - Regular neurologic checks - Blood pressure goal <140/90 - Recommend hypercoagulable workup - Upon discharge, pt should have close follow up with his PCP and follow up with Dr. Ogden in 4 weeks. Note: Saw the patient and discussed the case with Dr. Ogden, but the patient left before being seen by attending. Problems: GI Prophylaxis: Not indicated VTE Prophylaxis: Sub-Q Heparin (Unfractionated) Resuscitation Status: CPR: Attempt Resuscitation (discussed and verified with patient) Danilo Mir Oct 01, 2016 14:18
--- NOTE | 2016-10-01 15:47 | DRSVH ---
[facility] [address] [address] Echocardiogram Report Name: LAZARUS MARADIAGA te: 10/01/2016 Height: 74 in Hospital Exam Location: [facility] Weight: 175 lb Gender: Male BSA: 2.1 m2 : 1950 Age: 66 yrs BP: 120/68 mmHg Reason For Study: CVA History: CABG Ordering Physician: Performed By: Susanne Nam Referring Physician: Angel Ramirez Interpretation Summary The left ventricle is normal in size, wall thickness, and systolic function without any focal wall motion abnormalities. Left ventricular wall thickness is borderline increased. Left ventricular ejection fraction is estimated to be .45. Assessment of diastolic parameters indicates a relaxation abnormality of the left ventricle, consistent with normal filling pressures. Mid to basal inferior, inferoseptal and septal hypokinesis is noted. Injection of contrast documented no interatrial shunt. Procedure: A two-dimensional transthoracic echocardiogram with color flow and Doppler was performed in limited views only. The study quality was technically good. Comparison is made with the echocardiogram of 11/24/2015. A saline contrast injection was performed to assess for cardiac shunting. The patient was in normal sinus rhythm during the exam. The patient had occasional PVCs during the exam. Left Ventricle: The left ventricle is normal in size, wall thickness, and systolic function without any focal wall motion abnormalities. Left ventricular wall thickness is borderline increased. A false chord is noted (normal variant). There is no thrombus. Left ventricular ejection fraction is estimated to be .45. Compared to the prior exam, left ventricular function is slightly decreased. Mid to basal inferior, inferoseptal and septal hypokinesis is noted. Assessment of diastolic parameters indicates a relaxation abnormality of the left ventricle, consistent with normal filling pressures. Right Ventricle: The right ventricle is grossly normal size. Atria: Chiari network (normal variant) is noted. This was not well seen on prior echo. Injection of contrast documented no interatrial shunt. Mitral Valve: The mitral valve is normal in structure and function. There is trace mitral regurgitation. Aortic Valve: The aortic valve opens well. No aortic regurgitation is present. Tricuspid Valve: There is a trace or physiologic amount of tricuspid regurgitation. Right ventricular systolic pressure is estimated to be least 18 mmHg plus the clinically estimated CVP which cannot be estimated on this exam. Pericardium/ Pleura There is no pericardial effusion. MMode/2D Measurements & Calculations LVIDd LV dockery. diameter/BSA (cm/m^2) LV sys. diameter/BSA (cm/m^2) : 5.6 cm LVIDs : 4.0 cm FS: 27.4 % IVSd: 1.1 cm LVPWd : 0.9cm Doppler Measurements & Calculations MV E max maxim MV E/A: 0.82 TR max maxim MV dec time : 47.0 cm/sec Med Peak E' Maxim : 213.1 cm/sec : 0.39 sec MV A max maxim TR max PG : 57.0 cm/sec E/E' med: 7.6 : 18.2 mmHg MV P1/2t: 114.5 msec Lat Peak E' Maxim E/E' lat: 4.6 E/e' average: 6.1 MV P1/2t max maxim MVA(P1/2t): 1.9 cm2 Electronically signed by: Allan Noriega on Reading Physician:10/01/2016 03:46 PM
[2016-10-01] MEDS ORDERED: NICO1PAT6 TOPICAL (15:53)
[2016-10-01] MEDS ORDERED: ASPI-973 PO (15:53)
--- NOTE | 2016-10-01 16:05 | PCM.DIMED ---
Discharge Instructions Date of Service Oct 01, 2016 Dates of Hospitalization Sep 29, 2016 at 15:20 Discharge Diagnosis Discharge Diagnosis # Acute slurring of speech as well as acute on chronic left sided weakness, present on admission. Symptoms resolved. - Likely acute transient ischemic attack (TIA) # Acute hematuria, present prior to admission. Appear resolved at this time - Will need further followup with urology as outpatient # History of cardiovascular disease/hypertension. stable # Diabetes mellitus type II # Tobacco dependence # Dementia, stable Diet Discharge Diet: Low fat, Low Sodium, Heart Healthy, Diabetic Activity Discharge Activity: Home Health Phyical Therapy Call your provider Call your provider for: Fever or Chills, Shortness of breath, Bleeding, Chest pain, Weakness (unilateral) Patient Instructions Patient Instructions Seek immediate medical attention if any new or worsening signs or symptoms occur. Follow-up plan 1. Followup with primary care provider in one week and for consideration of further hypercoagulable workup as outpatient 2. Followup with neurology (Dr. Ogden) in [address] [id number] Follow-up Provider: Angel Ramirez ND Follow-up with PCP in: 1 week Provider: Matt Ogden MD Follow-up in: 4 weeks Kade Ching Oct 01, 2016 16:05
--- NOTE | 2016-10-01 16:30 | NUR ---
Social Work-discharge: Data:EMR Reviewed. Pt is on day 2 of hospitalization for alerted mental status per H&P. Pt is medically stable to discharge. SW updated pt and at bedside regarding discharge. is upset and explained that she feels like she needs to get things ready at home and would like pt to discharge tomorrow. SW explained that pt does not have medical reason to stay in the hospital and problem solved with around pt to stay with him this evening while she runs errands. MD also in room during conversation. Pt and continue to decline SNF placement and want to return home with HH. CLOTILDE updated [facility] of discharge and faxed in F2F and orders for RN,PT, and OT. All updated and agreeable to plan. Assessment:Pt who would benefit from HH. Plan:Pt to discharge home today via POV. [facility], access given. All updated and agreeable to plan. CHIQUIS Cabral
--- NOTE | 2016-10-01 17:25 | NUR ---
Discharge Pt discharged at this time. All belongings gathered and returned to pt, No complains of increased weakness or pain. VSS. IV D/Cd intact, tele monitor removed. Hard copy of new script given to pt to fill. Discharge packet printed and reviewed with pt and spouse. Pt taken from [facility] in wheel chair by [employer] to be transported home in private vehicle driven by .
--- NOTE | 2016-10-01 17:52 | PCM.DC.MED ---
Discharge Summary Date of Service Oct 01, 2016 Dates of Hospitalization Date of Hospital Admission Sep 29, 2016 at 15:20 Date of Discharge: Oct 01, 2016 Providers: Admitting Physician: Kade Robertson Primary Care Physician: Angel Ramirez ND Attending Physician: Kade Robertson Diagnosis at Time of Discharge Diagnosis at Time of Discharge # Acute slurring of speech as well as acute on chronic left sided weakness, present on admission. Symptoms resolved. - Likely acute transient ischemic attack (TIA) # Acute hematuria, present prior to admission. Appear resolved at this time - Will need further followup with urology as outpatient # History of cardiovascular disease/hypertension. stable # Diabetes mellitus type II # Tobacco dependence # Dementia, stable Consultations 1. Neurology (Dr. Ogden) Procedures XRay, CTs & MRIs Date of Service: 09/29/16 1317 PROCEDURE: CT BRAIN WITHOUT CONTRAST ([id number]) IMPRESSION: No acute intracranial abnormality is seen. Small old lacune infarcts are present in the left centrum semiovale. Dictated by: Reji Butcher M.D. on 09/29/2016 at 13:42 Approved by: Reji Butcher M.D. on 09/29/2016 at 13:45 Date of Service: 09/30/16 0700 PROCEDURE: MRI STROKE PROTOCOL ([id number]) Pre- and post-contrast brain MRI, non-contrast brain MR angiogram, pre- and postcontrast neck MR angiogram IMPRESSION: BRAIN MRI: Mild to moderate microvascular atherosclerotic change in the deep white matter of each hemisphere but there is no sign of acute or subacute ischemic injury. BRAIN MR ANGIOGRAM: Normal intracranial MR angiogram. NECK MR ANGIOGRAM: Minimal atherosclerotic irregularity at the origin of each proximal internal carotid artery, stable over time. The estimate of stenosis included in the report of the imaging study was calculated using the NASCET method Dictated by: Michoacano Rubin M.D. on 09/30/2016 at 10:23 Approved by: Michoacano Rubin M.D. on 09/30/2016 at 10:51 Cardiac Echo Impression Date of Service: 10/01/16 1728 Echocardiogram Report Interpretation Summary The left ventricle is normal in size, wall thickness, and systolic function without any focal wall motion abnormalities. Left ventricular wall thickness is borderline increased. Left ventricular ejection fraction is estimated to be .45. Assessment of diastolic parameters indicates a relaxation abnormality of the left ventricle, consistent with normal filling pressures. Mid to basal inferior, inferoseptal and septal hypokinesis is noted. Injection of contrast documented no interatrial shunt. Electronically signed by: Allan Noriega on Reading Physician:10/01/2016 03:46 PM ADDENDUM Version [address] [address] Echocardiogram Report Name: LAZARUS MARADIAGA te: 10/01/2016 Height: 74 in Hospital Exam Location: [facility] Weight: 175 lb Gender: Male BSA: 2.1 m2 : 1950 Age: 66 yrs BP: 120/68 mmHg Reason For Study: CVA History: CABG Ordering Physician: Performed By: Susanne Nam Referring Physician: Angel Ramirez Interpretation Summary The left ventricle is normal in size, wall thickness, and systolic function without any focal wall motion abnormalities. Left ventricular wall thickness is borderline increased. Left ventricular ejection fraction is estimated to be .45. Assessment of diastolic parameters indicates a relaxation abnormality of the left ventricle, consistent with normal filling pressures. Injection of contrast documented no interatrial shunt. Mid to basal inferior, inferoseptal hypokinesis is noted. Electronically signed by: Allan Noriega on Reading Physician:10/01/2016 03:50 PM Report status: Addendum REPORT#: [id number] Brief History 66 year-old right-handed male with past medical history notable for diabetes mellitus, coronary artery disease with multiple stents and bypass surgery, in addition to known vascular disease previous history of multiple CVAs and TIAs mostly resulting in left-sided weakness presents today with complaint of new onset of slurred speech and acute on chronic left sided weakness. Patient's provides most of the history and notes that for the past few days patient seems to be slowly deteriorating by becoming slower in his movement and appearing weaker than usual. Today patient seemed to be leaning more to his left side and his was having a hard time helping him standup which he was able to do so up until today. Patient's also reports that patient has been having urinary hesitancy and retention for the past several days and has noted couple of episodes of hematuria as well. He has also been having non-productive cough for the past week or so. Patient apparently had an episode of fever one week ago but has remained afebrile and without chills. Of note, patient was diagnosed with PE in February 2016 and was treated with Eliquis which was stopped about a month ago, according to patient's , and patient was restarted back on Plavix alone. Patient's also reports that patient has lost about 50 lbs over the past 1.5 years due to decreased appetite and PO intake. He has intermitent diarrhea without any noted melena or hematochezia. Hospital Course # Acute slurring of speech as well as acute on chronic left sided weakness, present on admission. Resolved - Unclear if acute TIA vs possible exacerbation of prior CVA - CT brain and MRI negative - Neurology consulted and recommended dual antiplatelet therapy by adding ASA 81mg to home dose Plavix # Acute hematuria, present prior to admission per patient's report. Appear resolved at this time - UA notable only for trace occult blood - Will need further followup with urology as outpatient # Acute on chronic cough, present on admission. Stable - CXR without acute finding # History of cardiovascular disease/hypertension. stable - Resumed home dose antihypertensive medications # Diabetes mellitus type II: - Continue with home dose Insulin # Tobacco dependence - Cessation was counseled therapeutic options are reviewed. 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 Neuro exam also non-focal. Lungs CTA bilaterally. CV: RRR Test 09/29/16 13:47 09/30/16 07:37 10/01/16 05:10 Neutrophils (%) (Auto) 71.5% (40-74) Lymphocytes (%) (Auto) 19.3% (14-46) Monocytes (%) (Auto) 7.2% (4-12) Eosinophils (%) (Auto) 1.4% (0-5) Basophils (%) (Auto) 0.4% (0-3) Prothrombin Time 10.9sec (8.1-12.5) Prothromb Time International Ratio 1.02ratio Activated Partial Thromboplast Time 20.9sec (22.8-33.0) Total Bilirubin 0.4mg/dL (0.0-1.2) Aspartate Amino Transf (AST/SGOT) 15U/L (0-50) Alanine Aminotransferase (ALT/SGPT) 15U/L (0-44) Alkaline Phosphatase 101U/L (25-160) Troponin T < 0.010ug/L (0.0-0.011) Total Protein 6.2g/dL (6.4-8.4) Albumin 3.2g/dL (3.4-5.0) Hold [place] Top Tube Received (Received) Urine Color Straw (YELLOW) Urine Appearance Clear (CLEAR,HAZY) Urine pH 7.0 (5.0-8.0) Urine Specific [place] 1.015 (1.003-1.035) Urine Protein 30mg/dL (NEG,TRACE) Urine Glucose (UA) Negativemg/dL (NEGATIVE) Urine Ketones Negativemg/dL (NEGATIVE) Urine Occult Blood Trace (NEGATIVE) Urine Nitrite Negative (NEGATIVE) Urine Bilirubin Negative (NEGATIVE) Urine Urobilinogen Normalmg/dL (NORMAL) Urine Leukocyte Esterase Negative (NEGATIVE) Urine RBC 0-2/hpf (0-2) Urine WBC 0-5/hpf (0-5) Urine Epithelial Cells None/hpf (NONE-MOD) Urine Crystals None seen (NONE SEEN) Urine Bacteria None/hpf (NONE-FEW) Urine Hyaline Casts None/lpf (NONE) Urine Granular Casts None seen (NONE SEEN) Urine Waxy Casts None seen (NONE SEEN) Urine Red Blood Cell Casts None seen (NONE SEEN) Urine White Blood Cell Casts None seen (NONE SEEN) Urine Mucus None seen (None Seen) Urine Trichomonas None seen (NONE SEEN) Urine Yeast None (NONE SEEN) Urinalysis Comment None Urine Culture Reflexed Not indicated White Blood Count 8.0th/mm3 (3.8-10.1) Red Blood Count 4.67mil/mm3 (4.40-5.80) Hemoglobin 11.8g/dL (13.8-17.2) Hematocrit 36.4% (41.0-50.0) Mean Corpuscular Volume 77.9fL (81-100) Mean Corpuscular Hemoglobin 25.3pg (27.0-35.0) Mean Corpuscular Hemoglobin Concent 32.4% (32.0-37.0) Red Cell Distribution Width 16.1% (12.3-15.4) Platelet Count 188bil/L (150-400) Sodium Level 140mEq/L (134-144) Potassium Level 4.0mEq/L (3.5-5.2) Chloride Level 105mEq/L (97-108) Carbon Dioxide Level 23mmol/L (18-29) Blood Urea Nitrogen 19mg/dL (8-27) Creatinine 0.75mg/dL (0.76-1.27) Estimat Glomerular Filtration Rate 111mL/min (>59) Glucose Level 103mg/dL (60-99) Calcium Level 8.8mg/dL (8.5-10.1) Magnesium Level 1.6mg/dL (1.6-2.6) Discharge Medications Discharge Medications Amlodipine (Amlodipine) 5 Mg Tablet 5 MG PO HS (Reported) Aspirin (Aspirin) 81 Mg Tablet 81 MG PO DAILY Prescribed by: KADE ROBERTSON MD Atorvastatin (Lipitor) 80 Mg Tablet 80 MG PO HS (Reported) Carvedilol (Carvedilol) 12.5 Mg Tablet 12.5 MG PO BID (Reported) Clopidogrel Bisulfate (Plavix) 75 Mg Tablet 75 MG PO HS (Reported) Gabapentin (Gabapentin) 300 Mg Capsule 300 MG PO BID (Reported) Insulin Glargine (Lantus U100 Insulin Vial) 100 Unit/Ml Vial 20 UNIT SUBQ HS Prescribed by: GERARDO MOFFETT MD Insulin Human Lispro (HumaLOG U100 Insulin Vial) 100 Unit/Ml Unit 2-10 UNITS SUBQ ACHS (Reported) PER SLIDING SCALE FOR BG > 200 Isosorbide MN ER (Isosorbide MN ER) 60 Mg Tab.er.24h 60 MG PO HS (Reported) Lisinopril (Lisinopril) 5 Mg Tablet 5 MG PO HS (Reported) Nicotine 21 mg/24 hr Patch (Nicotine 21 mg/24 hr Patch) 1 Each Patch.td24 1 PATCH TOPICAL 2030 Prescribed by: KADE ROBERTSON MD Paroxetine (Paroxetine) 40 Mg Tablet 40 MG PO HS (Reported) Risperidone (Risperidone) 2 Mg Tablet 2 MG PO BID (Reported) Rivastigmine (Rivastigmine) 3 Mg Capsule 3 MG PO BIDWM (Reported) Trazodone (Trazodone) 100 Mg Tablet 200 MG PO HS (Reported) As needed Alprazolam (Alprazolam) 0.5 Mg Tablet 0.5 MG PO HS PRN PRN For Insomnia ( Reported) Hydrocodone-Acetaminophen 5-325 mg (Hydrocodone-Acetaminophen 5-325 mg) 1 Each Tablet 1 TABLET PO BID PRN PRN For Pain (Reported) Ibuprofen (Ibuprofen) 200 Mg Capsule 200-400 MG PO TID PRN PRN For Pain ( Reported) Nitroglycerin SL (Nitroglycerin SL) 0.4 Mg Tab.subl 0.4 MG SL Q5MIN PRN PRN For Chest Pain (Reported) Followup Plan Disposition: Home with home health Follow-up plan 1. Followup with primary care provider in one week and for consideration of further hypercoagulable workup as outpatient 2. Followup with neurology (Dr. Ogden) in [address] [address] Discharge Diet: Low fat, Low Sodium, Heart Healthy, Diabetic Discharge Activity: Home Health Phyical Therapy Patient Instructions Seek immediate medical attention if any new or worsening signs or symptoms occur. pt and his express clear verbal understanding of mentioned assessment and recommendations and agree. Follow-up Provider: Angel Ramirez ND Follow-up with PCP in: 1 week Provider: Matt Ogden MD Follow-up in: 4 weeks Time spent 40 min copies to: Angel Ramirez ND; Matt Ogden MD, Masoud Oct 01, 2016 17:52
== END 2016-10-01 17:40 | disposition home or self-care (01) ==
LOC: SED 12:40 → EDBD 12:40 → INTOOBSV 15:20 → MPC 15:20
PROVIDERS: ADMIT Internal Medicine; ATTEND Internal Medicine
DX: R47.81 Slurred speech (principal); R53.1 Weakness; G45.9 Transient cerebral ischemic attack, unspecified; R31.9 Hematuria, unspecified; I25.10 Atherosclerotic heart disease of native coronary artery without angina pectoris; I10 Essential (primary) hypertension; E11.9 Type 2 diabetes mellitus without complications; I26.99 Other pulmonary embolism without acute cor pulmonale; F41.9 Anxiety disorder, unspecified; F32.9 Major depressive disorder, single episode, unspecified; R05 Cough; F03.90 Unspecified dementia, unspecified severity, without behavioral disturbance, psychotic disturbance, mood disturbance, and anxiety; Z87.891 Personal history of nicotine dependence; Z95.5 Presence of coronary angioplasty implant and graft; Z95.1 Presence of aortocoronary bypass graft; Z79.01 Long term (current) use of anticoagulants; Z79.82 Long term (current) use of aspirin; Z79.4 Long term (current) use of insulin
CPT/HCPCS: 36415; 70450; 70549; 70553; 71010; 80048; 80053; 81000; 82948; 83036; 83735; 84484; 85025; 85027; 85610; 85730; 92526; 92610; 93005; 97110; 97116; 97161; 99291; A9585; C8924; G0378; G8978; G8979; G8996; G8997; J1644; J1815